=== PATIENT | female | born 1960 | race Hispanic/Latino ===

== ENCOUNTER 2017-06-27 08:10 | Outpatient (CLI) | payer BC | END 2017-06-27 08:11 | disposition home or self-care (01) | LOC: BICMAMMO 08:10 | PROVIDERS: ATTEND Student in an Organized Health Care Education/Training Program | DX: Z12.31 Encounter for screening mammogram for malignant neoplasm of breast (principal) | CPT/HCPCS: 77063; 77067 ==

== ENCOUNTER 2018-12-18 07:54 | Outpatient (CLI) | payer BC ==
--- NOTE | 2018-12-18 08:21 | BD ---
DEXA BONE DENSITY SCAN: Date: 12/18/2018 COMPARISON: 08/16/2014. HISTORY: Screening exam, postmenopausal female, evaluate for osteoporosis. FINDINGS: Lumbar Spine BMD (g/cm2) L1 0.904 T-Score -0.8 (previous -0.7) L2 0.876 T-Score -1.4 (previous -1.2) L3 0.851 T-Score -2.1 (previous -2.1) L4 0.863 T-Score -1.8 (previous -1.9) L1-L4 0.873 T-Score -1.6 (previous -1.5) Femoral Neck 0.841 T-Score -0.1 (previous 0.0) Total Femur 1.057 T-Score 0.9 (previous 0.6) The FRAX-WHO fracture risk assessment tool reports a 10 year fracture risk of 6.2% for major osteopor otic fracture and 0.1% for hip fracture in an untreated patient. IMPRESSION: Lumbar spine osteopenia, correlating with a moderately increased risk for fracture. Transcribed Date/Time: 12/18/2018 8:58 AM
== END 2018-12-18 07:55 | disposition home or self-care (01) ==
LOC: BICMAMMO 07:54
PROVIDERS: ATTEND Student in an Organized Health Care Education/Training Program
DX: Z13.820 Encounter for screening for osteoporosis (principal); M85.88 Other specified disorders of bone density and structure, other site
CPT/HCPCS: 77080

== ENCOUNTER 2020-01-27 08:58 | Outpatient (CLI) | payer BC ==
--- NOTE | 2020-01-27 10:01 | MMO ---
Bilateral MAMMO Bilat Diag [facility]. CLINICAL HISTORY: Patient is 60 years old and is seen for diagnostic exam. The patient has no family history of breast cancer. The patient has no personal history of cancer. VIEWS: The views performed were: bilateral craniocaudal with tomosynthesis; bilateral mediolateral oblique with tomosynthesis; and bilateral mediolateral with tomosynthesis. FILMS COMPARED: The present examination has been compared to prior imaging studies performed at [facility] on 11/20/2018, and at [facility] on 08/16/2014, 06/27/2017 and 01/27/2020. This study has been interpreted with the assistance of computer-aided detection. MAMMOGRAM FINDINGS: There are scattered fibroglandular densities. Finding 1: There are stable benign appearing calcifications seen in both breasts. Finding 2: There is a mass measuring 6 millimeters with circumscribed margins seen in the sub-areolar region of the left breast. dilated duct on ultrasound There has been no significant interval change. There are no suspicious masses, suspicious calcifications, or new areas of architectural distortion. IMPRESSION: THERE IS NO MAMMOGRAPHIC EVIDENCE OF MALIGNANCY. A ROUTINE FOLLOW-UP MAMMOGRAM IN 1 YEAR IS RECOMMENDED. THE RESULTS OF THIS EXAM WERE SENT TO THE PATIENT. ACR BI-RADS Category 2 - Benign finding MAMMOGRAPHY NOTE: 1. A negative mammogram report should not delay a biopsy if a dominant of clinically suspicious mass is present. 2. Approximately 10% to 15% of breast cancers are not detected by mammography. 3. Adenosis and dense breasts may obscure an underlying neoplasm. Reported by: RASHAWN DOE MD Electonically Signed: [id number]
--- NOTE | 2020-01-27 11:53 | ULT ---
LEFT BREAST ULTRASOUND: Date: 01/27/2020 HISTORY: Patient with some left nipple retraction, with abnormal circumscribed mass density just adjacent to t he nipple region in the retroareolar region. FINDINGS: In the retroareolar region of the left breast, there is a dilated duct. At the maximum dilatation, th is duct measures approximately 0.5 x 0.7 cm. It is somewhat tortuous and approximates 3.0 cm in overa ll length. I feel that this does correspond to the mammographic finding. In review of old mammograms, there was some similar nodularity in this region of the breast in the retroareolar region. Dating back to older studies, I feel that this is a stable finding. IMPRESSION: Evidence for a stable, somewhat dilated, somewhat tortuous duct in the retroareolar region of the lef t breast, accounting for the mammographic finding in this location. BI-RADS Category 2 - Benign findings. Continue annual follow-up examination. Findings were discussed with the patient.
== END 2020-01-27 08:59 | disposition home or self-care (01) ==
LOC: BICMAMMO 08:58
PROVIDERS: ATTEND Student in an Organized Health Care Education/Training Program
DX: N64.59 Other signs and symptoms in breast (principal)
CPT/HCPCS: 77066; G0279

== ENCOUNTER 2021-04-12 11:00 | Outpatient (CLI) | payer BC | END 2021-04-12 11:01 | disposition home or self-care (01) | LOC: BICMAMMO 11:00 | PROVIDERS: ATTEND Student in an Organized Health Care Education/Training Program | DX: Z12.31 Encounter for screening mammogram for malignant neoplasm of breast (principal) | CPT/HCPCS: 77063; 77067 ==

== ENCOUNTER 2022-07-17 08:38 | Outpatient (CLI) | payer BC | END 2022-07-17 08:39 | disposition home or self-care (01) | LOC: BICMAMMO 08:38 | PROVIDERS: ATTEND Family Medicine | DX: Z12.31 Encounter for screening mammogram for malignant neoplasm of breast (principal) | CPT/HCPCS: 77063; 77067 ==